=== PATIENT | female | born 2000 | race Caucasian/White ===

== ENCOUNTER 2023-08-12 10:16 | Emergency (ER) | payer MEDICAID ==
[~2023-08-12] VITALS: Ht 162.6 cm; Wt 90.3 kg
[2023-08-12 12:40] LABS: PREGNANCY TEST URINE QUAL NEGATIVE (NEGATIVE)
[2023-08-12] MEDS ORDERED: LIDOCAINE 5% (PATCH) 1 EA PATCH TP ONE (12:53)
[2023-08-12] MEDS ORDERED: KETOROLAC TROMETHAMINE INJ 30 MG/ML VIAL ONE (12:54)
[2023-08-12] MEDS ORDERED: oxyCODONE/APAP (5/325 MG) 1 UDTAB TABLET ONE (12:54)
[2023-08-12] MEDS ORDERED: dexAMETHasone 4 MG TABLET ONE (12:55)
[2023-08-12] MEDS: KETOROLAC TROMETHAMINE INJ 30 MG/ML VIAL IM ONE (12:56)
[2023-08-12] MEDS: dexAMETHasone 1 MG TABLET PO ONE (12:57)
[2023-08-12] MEDS: LIDOCAINE 5% (PATCH) 1 EA PATCH TP ONE (13:07)
[2023-08-12] MEDS: oxyCODONE/APAP (5/325 MG) 1 UDTAB TABLET PO ONE (13:08)
[2023-08-12] MEDS ORDERED: OXYC-128 PO (13:58)
[2023-08-12 14:11] VITALS: BP 103/77; TEMP 98.5; O2SAT 98
== END 2023-08-12 14:11 | disposition home or self-care (01) ==
LOC: ER 10:27
DX: M54.50 Low back pain, unspecified (principal)
CPT/HCPCS: 99284; 96372; 84703; J8540; J1885